=== PATIENT | female | born 1965 | race African-American/Black ===

== ENCOUNTER 2019-06-27 00:48 | Inpatient (IN) | payer OTHER ==
[2019-06-27] MEDS ORDERED: NA CHLORIDE 0.9% 500 ML ONE (01:33)
[2019-06-27 01:52] LABS: Urine Blood 2+ (NEG); Urine Glucose NEGATIVE (NEG); Urine Protein 2+ (NEG); Urine Specific Gravity >1.030 (1.005-1.030)
[2019-06-27 02:06] LABS: Absolute Lymphocytes (CBC) 1.5 K/uL (0.7-4.9); Basophils % 0.7 % (0-1.3); Hematocrit 35.1 % (36.0-45.0); Lymphocytes % 14.4 % (15.3-44.8); RBC Red Blood Cell Count 4.05 M/uL (3.86-4.86)
[2019-06-27] MEDS ORDERED: ASPIRIN 81 MG CHEWABLE TABLET ONE (02:17)
[2019-06-27] MEDS ORDERED: METOPROLOL TAR 50 MG TAB ONE (02:17)
[2019-06-27 02:32] LABS: ALT/SGPT 44 U/L (12-78); AST/SGOT 42 U/L (15-37); Albumin 2.9 g/dL (3.4-5.0); Alkaline Phosphatase 149 U/L (45-117); BUN Blood Urea Nitrogen 12 mg/dL (7-18); Bicarbonate 26 mmol/L (21-32); Bilirubin Direct 0.1 mg/dL (0-0.2); Bilirubin Total 0.3 mg/dL (0.2-1.0); Glucose Level 116 mg/dL (74-106); Magnesium 2.1 mg/dL (1.8-2.4); NT PRO-BNP 7100 pg/mL (<125); Protein, Total 7.1 g/dL (6.4-8.2); Sodium Level 141 mmol/L (136-145); Troponin (Emerg Dept Use Only) 0.07 ng/mL (0.0-0.045)
[2019-06-27 02:33] LABS: Potassium 2.8 mmol/L (3.5-5.1)
[2019-06-27] MEDS ORDERED: NA CHLORIDE 0.9% 250 ML ONE (02:38)
[2019-06-27] MEDS ORDERED: CEFTRIAXONE/SWI 1gm 1 GM/10 ML SYR ONE (02:38)
[2019-06-27] MEDS ORDERED: AZITHROMYCIN 500 MG INJ IVPB ONE (02:38)
[2019-06-27] MEDS ORDERED: POTASSIUM 25 MEQ EFFERV TAB ONE (03:25)
[2019-06-27] MEDS ORDERED: ENOXAPARIN 100 MG/ML SYR SQ ONE (04:00)
[2019-06-27] MEDS ORDERED: FUROSEMIDE 40 MG/4 ML VIAL ONE (04:00)
[2019-06-27] MEDS ORDERED: METHYLPREDNISOLONE 125 MG INJ ONE (04:00)
--- NOTE | 2019-06-27 04:07 | ER ---
Nurse's Notes [facility] Name: Jax Winn Age: 54 yrs Sex: Female : 1965 Arrival Date: 06/27/2019 Time: 00:52 Bed 17 Private MD: Diagnosis: Dyspnea;Cough;Pneumonia, unspecified organism-right multifocal;Pleural effusion in conditions classified elsewhere;Hypokalemia-2.8;Hypoxemia;Tobacco use;Tobacco abuse counseling;Cardiomegaly;Unspecified combined systolic (congestive) and diastolic (congestive) heart failure Presentation: 06/26 01:19 Chief complaint: Patient states: Shortness of breath, productive cough, body aches x 1 lp1 week; no relief with cough suppressants; Beginning to have loss of appetite, x2 episodes of diarrhea; denies any fever. Coronavirus screen: Surgical mask placed on patient. Patient moved to private room, placed in contact and droplet isolation with eye protection until further assessment. Patient reports a cough. Patient reports shortness of breath or difficulty breathing. Patient denies measured and/or subjective temperature greater than 100.4F prior to today's visit. Patient denies travel on a cruise ship or to a country the [facility] currently lists as an affected area. Patient denies contact with known and/or suspected case of COVID-19. Ebola Screen: No symptoms or risks identified at this time. Initial Sepsis Screen: Does the patient meet any 2 criteria? No. Patient's initial sepsis screen is negative. Does the patient have a suspected source of infection? No. Patient's initial sepsis screen is negative. Risk Assessment: Do you want to hurt yourself or someone else? Patient reports no desire to harm self or others. Onset of symptoms was June 27, 2019. 01:19 Method Of Arrival: Ambulatory lp1 01:19 Acuity: ABHINAV 3 lp1 Triage Assessment: 07:22 Respiratory: Onset: The symptoms/episode began/occurred gradually. bb3 07:25 Respiratory: the patient has mild shortness of breath. bb3 Historical: - Allergies: 01:22 No Known Allergies; lp1 - Home Meds: 01:22 None [Active]; lp1 - PMHx: 01:22 Hypertension; lp1 - PSHx: 01:22 ; lp1 - Immunization history:: Adult Immunizations up to date. - Family history:: not pertinent. - Social history:: Smoking status: Patient reports the use of cigarette tobacco products, smokes one-half pack cigarettes per day. Screenin:22 Abuse screen: Denies threats or abuse. Denies injuries from another. Nutritional lp1 screening: No deficits noted. Tuberculosis screening: No symptoms or risk factors identified. Fall Risk None identified. Assessment: 02:02 General: Appears in no apparent distress. comfortable, Behavior is calm, cooperative. mg2 Pain: Complains of pain in whole body. Neuro: Level of Consciousness is awake, alert, obeys commands, Oriented to person, place, time, situation. Cardiovascular: Rhythm is regular. Respiratory: Reports shortness of breath cough that is Airway is patent Respiratory effort is even, unlabored, Respiratory pattern is regular, symmetrical. GI: No signs and/or symptoms were reported involving the gastrointestinal system. : No signs and/or symptoms were reported regarding the genitourinary system. EENT: No signs and/or symptoms were reported regarding the EENT system. Derm: Skin is intact, is healthy with good turgor, Skin is pink, warm \T\ dry. normal. Musculoskeletal: Circulation, motion, and sensation intact. Capillary refill < 3 seconds. 03:00 Reassessment: Patient and/or family updated on plan of care and expected duration. Pain bb3 level reassessed. Patient is alert, oriented x 3, equal unlabored respirations, skin warm/dry/pink. General: Appears distressed, uncomfortable. Respiratory: Reports shortness of breath pain with cough. 04:15 Reassessment: Patient and/or family updated on plan of care and expected duration. Pain bb3 level reassessed. Patient is alert, oriented x 3, equal unlabored respirations, skin warm/dry/pink. General: Appears distressed, uncomfortable, Behavior is calm, cooperative. Respiratory: Reports shortness of breath. 05:30 Reassessment: Patient and/or family updated on plan of care and expected duration. Pain bb3 level reassessed. Patient is alert, oriented x 3, equal unlabored respirations, skin warm/dry/pink. Patient states feeling better. Patient states symptoms have improved. General: Appears in no apparent distress. comfortable, Behavior is calm, cooperative. Respiratory: No deficits noted. 06:45 Reassessment: Patient appears in no apparent distress at this time. Patient and/or bb3 family updated on plan of care and expected duration. Pain level reassessed. Patient is alert, oriented x 3, equal unlabored respirations, skin warm/dry/pink. General: Appears in no apparent distress. comfortable. 07:24 Respiratory: Breath sounds are diminished bilaterally. bb3 Vital Signs: 01:19 BP 166 / 110; Pulse 100; Resp 18; Temp 98.4(O); Pulse Ox 94% on R/A; Weight 90.72 kg; lp1 Height 5 ft. 1 in. (154.94 cm); 02:36 BP 166 / 110; Pulse 112; Resp 22; Pulse Ox 96% ; bb3 03:38 BP 158 / 103; Pulse 111; Resp 20; Pulse Ox 96% ; bb3 03:47 BP 131 / 93; Pulse 97; Resp 22; Pulse Ox 98% ; bb3 04:51 BP 131 / 93; Pulse 93; Resp 22; Pulse Ox 98% ; bb3 04:51 BP 123 / 83; Pulse 93; Resp 17; Pulse Ox 96% ; bb3 05:44 BP 131 / 89; Pulse 86; Resp 22; Pulse Ox 98% ; Pain 2/10; bb3 07:03 BP 136 / 103; Pulse 96; Resp 20; Pulse Ox 100% ; bb3 01:19 Body Mass Index 37.79 (90.72 kg, 154.94 cm) lp1 ED Course: 00:52 Patient arrived in ED. fj1 00:59 Britton Knox MD is Attending Physician. melony 01:21 Triage completed. lp1 01:21 Arm band placed on. lp1 01:22 Patient has correct armband on for positive identification. Placed in gown. Bed in low lp1 position. Call light in reach. Droplet isolation initiated. 01:33 Chest Pa And Lat (2 Views) XRAY In Process Unspecified. EDMS 01:50 Inserted saline lock: 20 gauge in right antecubital area, using aseptic technique. mg2 Blood collected. 02:01 No provider procedures requiring assistance completed. mg2 03:25 CT Chest For PE Angio In Process Unspecified. EDMS 04:03 Rha Franks is Hospitalizing Provider. melony 07:16 Patient admitted, IV remains in place. intact. bb3 Administered Medications: 02:00 Drug: NS 0.9% 500 ml Route: IV; Rate: bolus; Site: right antecubital; mg2 02:46 Drug: Rocephin 1 grams Route: IV; Rate: per protocol; Site: right antecubital; bb3 02:50 Drug: Aspirin 162 mg Route: PO; bb3 03:49 Follow up: Response: No adverse reaction bb3 02:50 Drug: Lopressor (metoprolol TARTRATE) 50 mg Route: PO; bb3 03:47 Follow up: BP 131 / 93; Pulse 97 bpm; Resp 22 bpm; Pulse Ox 98% bb3 03:48 Follow up: Response: No adverse reaction; Blood pressure is lowered bb3 03:30 Drug: Zithromax 500 mg Route: IVPB; Infused Over: 1 hrs; Site: right antecubital; bb3 03:40 Drug: Potassium Effervescent Tablet 50 mEq Route: PO; bb3 07:12 Follow up: Response: No adverse reaction bb3 07:13 Follow up: Response: No adverse reaction bb3 03:52 CANCELLED (Other Intervention Used): Xopenex 2.5 mg Inhalation once lp1 03:52 CANCELLED (Other Intervention Used): AtroVENT Aerosol 0.5 mg Inhalation once lp1 04:05 Drug: Lasix 40 mg Route: IVP; Site: right antecubital; bb3 05:45 Follow up: Response: No adverse reaction bb3 04:07 Drug: SOLU-Medrol 125 mg Route: IVP; Site: right antecubital; bb3 07:12 Follow up: Response: No adverse reaction bb3 04:10 Drug: Lovenox 90 mg Route: Sub-Q; Site: right lower abdomen; bb3 05:44 Follow up: Response: Adverse reaction, Physician notified bb3 07:02 Follow up: Response: No adverse reaction bb3 04:30 Drug: Potassium Chloride 20 mEq Route: IV; Rate: per protocol; Site: right antecubital; bb3 07:14 Follow up: IV Status: Completed infusion bb3 05:00 Drug: morphine 2 mg Route: IVP; Site: right antecubital; bb3 05:44 Follow up: BP 131 / 89; Pulse 86 bpm; Resp 22 bpm; Pulse Ox 98% ; Pain 2/10 Adult; bb3 Response: No adverse reaction; Pain is decreased; Blood pressure is lowered 07:01 Follow up: Response: No adverse reaction; Pain is decreased; RASS: Alert and Calm (0) bb3 05:00 Drug: Zofran (Ondansetron) 4 mg Route: IVP; Site: right antecubital; bb3 05:43 Follow up: Response: No adverse reaction; Nausea is decreased bb3 07:00 Follow up: Response: No adverse reaction; Nausea is decreased bb3 07:03 Not Given (unavailable): Albuterol HFA Inhaler 2 puffs Inhalation once bb3 Outcome: 04:06 Decision to Hospitalize by Provider. melony 07:16 Admitted to ICU bb3 07:16 Admitted to ICU accompanied by nurse, via stretcher, with chart, Report called to ELKE Conroy 07:16 Condition: improved 07:16 Discharge instructions given to Instructed on the need for transfer, Demonstrated understanding of 07:26 Patient left the ED. bb3 Signatures: Dispatcher [employer] EDMS Britton Knox MD MD cha Pena, Laura, RN RN lp1 Neil Stein RN RN Temi Ellis bb3 Carlos Thurman fj1
--- NOTE | 2019-06-27 04:07 | EDPHYS ---
Physician Documentation [facility] Name: Jax Winn Age: 54 yrs Sex: Female : 1965 Arrival Date: 06/27/2019 Time: 00:52 Bed 17 Private MD: ED Physician Britton Knox HPI: 06/26 01:10 This 54 yrs old Black Female presents to ER via Unassigned with complaints of Shortness melony Of Breath, Cough, Pain All Over. 01:10 The patient has shortness of breath at rest. Onset: The symptoms/episode began/occurred melony 7 day(s) ago. Duration: The symptoms are continuous, and are unchanged since they started. The patient's shortness of breath has no apparent modifying factors, is aggravated by nothing, is alleviated by nothing. Associated signs and symptoms: Pertinent positives: chest pain, non-productive cough. Severity of symptoms: At their worst the symptoms were mild in the emergency department the symptoms are unchanged. The patient has experienced similar episodes in the past, a few times. Historical: - Allergies: :22 No Known Allergies; lp1 - Home Meds: :22 None [Active]; lp1 - PMHx: 01:22 Hypertension; lp1 - PSHx: 01:22 ; lp1 - Immunization history:: Adult Immunizations up to date. - Family history:: not pertinent. - Social history:: Smoking status: Patient reports the use of cigarette tobacco products, smokes one-half pack cigarettes per day. ROS: 01:11 Constitutional: Negative for fever, chills, and weight loss, Eyes: Negative for injury, melony pain, redness, and discharge, ENT: Negative for injury, pain, and discharge, Neck: Negative for injury, pain, and swelling, Abdomen/GI: Negative for abdominal pain, nausea, vomiting, diarrhea, and constipation, Back: Negative for injury and pain, : Negative for injury, bleeding, discharge, and swelling, MS/Extremity: Negative for injury and deformity, Skin: Negative for injury, rash, and discoloration, Neuro: Negative for headache, weakness, numbness, tingling, and seizure, Psych: Negative for depression, anxiety, suicide ideation, homicidal ideation, and hallucinations, Allergy/Immunology: Negative for hives, rash, and allergies, Endocrine: Negative for neck swelling, polydipsia, polyuria, polyphagia, and marked weight changes, Hematologic/Lymphatic: Negative for swollen nodes, abnormal bleeding, and unusual bruising. :11 Cardiovascular: Positive for chest pain. :11 Respiratory: Positive for cough, shortness of breath, at rest. :11 MS/extremity: Negative for acute changes. Exam: :11 Constitutional: This is a well developed, well nourished patient who is awake, alert, melony and in no acute distress. Head/Face: Normocephalic, atraumatic. Eyes: Pupils equal round and reactive to light, extra-ocular motions intact. Lids and lashes normal. Conjunctiva and sclera are non-icteric and not injected. Cornea within normal limits. Periorbital areas with no swelling, redness, or edema. ENT: Nares patent. No nasal discharge, no septal abnormalities noted. Tympanic membranes are normal and external auditory canals are clear. Oropharynx with no redness, swelling, or masses, exudates, or evidence of obstruction, uvula midline. Mucous membranes moist. Neck: Trachea midline, no thyromegaly or masses palpated, and no cervical lymphadenopathy. Supple, full range of motion without nuchal rigidity, or vertebral point tenderness. No Meningismus. Chest/axilla: Normal chest wall appearance and motion. Nontender with no deformity. No lesions are appreciated. Cardiovascular: Regular rate and rhythm with a normal S1 and S2. No gallops, murmurs, or rubs. Normal PMI, no JVD. No pulse deficits. Respiratory: Lungs have equal breath sounds bilaterally, clear to auscultation and percussion. No rales, rhonchi or wheezes noted. No increased work of breathing, no retractions or nasal flaring. Abdomen/GI: Soft, non-tender, with normal bowel sounds. No distension or tympany. No guarding or rebound. No evidence of tenderness throughout. Back: No spinal tenderness. No costovertebral tenderness. Full range of motion. Skin: Warm, dry with normal turgor. Normal color with no rashes, no lesions, and no evidence of cellulitis. MS/ Extremity: Pulses equal, no cyanosis. Neurovascular intact. Full, normal range of motion. Neuro: Awake and alert, GCS 15, oriented to person, place, time, and situation. Cranial nerves II-XII grossly intact. Motor strength 5/5 in all extremities. Sensory grossly intact. Cerebellar exam normal. Normal gait. Psych: Awake, alert, with orientation to person, place and time. Behavior, mood, and affect are within normal limits. 01:11 Musculoskeletal/extremity: DVT Exam: No signs of deep vein thrombosis. no pain, no swelling, no tenderness, negative Homans' sign noted on exam, no appreciated bluish discoloration, no erythema, no increased warmth. 02:01 ECG was reviewed by the Attending Physician. [facility] Vital Signs: 01:19 BP 166 / 110; Pulse 100; Resp 18; Temp 98.4(O); Pulse Ox 94% on R/A; Weight 90.72 kg; lp1 Height 5 ft. 1 in. (154.94 cm); 02:36 BP 166 / 110; Pulse 112; Resp 22; Pulse Ox 96% ; bb3 03:38 BP 158 / 103; Pulse 111; Resp 20; Pulse Ox 96% ; bb3 03:47 BP 131 / 93; Pulse 97; Resp 22; Pulse Ox 98% ; bb3 04:51 BP 131 / 93; Pulse 93; Resp 22; Pulse Ox 98% ; bb3 04:51 BP 123 / 83; Pulse 93; Resp 17; Pulse Ox 96% ; bb3 05:44 BP 131 / 89; Pulse 86; Resp 22; Pulse Ox 98% ; Pain 2/10; bb3 07:03 BP 136 / 103; Pulse 96; Resp 20; Pulse Ox 100% ; bb3 01:19 Body Mass Index 37.79 (90.72 kg, 154.94 cm) lp1 MDM: 00:59 Patient medically screened. [facility] 01:14 Differential diagnosis: Bronchitis CHF exacerbation, Chronic Obstructive Pulmonary melony Disease pneumonia, Pneumothorax pulmonary edema, Pulmonary Embolism reactive airway disease. Antibiotic administration: Not indicated. The patient's Wells Deep Vein Thrombosis Score was calculated as follows: Total Score: 0-2 Pts- Low Risk. The patient's pulmonary embolism risk score was calculated as follows: Total Score: 0-2 points. This patient was found to be at low risk for a pulmonary embolism by using the Well's assessment criteria. Data reviewed: vital signs, nurses notes, lab test result(s), EKG, radiologic studies, plain films. Data interpreted: vehicle monitor technician: rate is 80 beats/min, rhythm is normal sinus rhythm, Pulse oximetry: on room air is 96 %. Test interpretation: by ED physician or midlevel provider: ECG, plain radiologic studies. 04:06 Immunization status: Influenza vaccine: within last 5 years. Counseling: I had a [facility] detailed discussion with the patient and/or guardian regarding: the historical points, exam findings, and any diagnostic results supporting the discharge/admit diagnosis, the presence of at least one elevated blood pressure reading (>120/80) during this emergency department visit, lab results, radiology results, the need for further work-up and treatment in the hospital. ED course: cp, sob, cough, works in [place], sob , subjective fevers, x 1 week worse, suspicious for multifocal pna, covid 19, and or atypical pna. 04:13 ED course: dr franks aware of the case, no further orders, to icu. [facility] 06/26 01:10 Order name: Basic Metabolic Panel; Complete Time: 03:37 [facility] 06/26 01:10 Order name: CBC with Diff; Complete Time: 02:23 [facility] 06/26 01:10 Order name: LFT's; Complete Time: 03:37 [facility] 06/26 01:10 Order name: Magnesium; Complete Time: 03:37 [facility] 06/26 01:10 Order name: NT PRO-BNP; Complete Time: 03:37 [facility] 06/26 01:10 Order name: Troponin (emerg Dept Use Only); Complete Time: 03:37 [facility] 06/26 01:10 Order name: Blood Culture Adult (2) [facility] 06/26 01:10 Order name: Procalcitonin; Complete Time: 03:37 [facility] 06/26 01:10 Order name: COVID-19 [facility] 06/26 01:10 Order name: Flu; Complete Time: 03:37 [facility] 06/26 01:10 Order name: Strep; Complete Time: 03:37 [facility] 06/26 01:13 Order name: D-Dimer: sob.cp; Complete Time: 02:23 [facility] 06/26 01:43 Order name: Urine Dipstick--Ancillary (enter results); Complete Time: 02:00 [facility] 06/26 02:32 Order name: Throat Culture [facility] 06/26 01:10 Order name: Chest Pa And Lat (2 Views) XRAY [facility] 06/26 02:24 Order name: CT Chest For PE Angio [facility] 06/26 01:10 Order name: EKG; Complete Time: 01:11 [facility] 06/26 01:10 Order name: Cardiac monitoring; Complete Time: 02:01 [facility] 06/26 01:10 Order name: EKG - Nurse/Tech; Complete Time: 02:01 [facility] 06/26 01:10 Order name: IV Saline Lock; Complete Time: 02:01 [facility] 06/26 01:10 Order name: Labs collected and sent; Complete Time: 02:01 [facility] 06/26 01:10 Order name: O2 Per Protocol; Complete Time: 01:33 [facility] 06/26 01:10 Order name: O2 Sat Monitoring; Complete Time: 01:33 [facility] 06/26 01:14 Order name: Urine Dipstick-Ancillary (obtain specimen); Complete Time: :43 [facility] 06/26 04:12 Order name: Oxygen; Complete Time: 05:30 [facility] EC:01 Rate is 107 beats/min. Rhythm is regular. QRS Beebe is Normal. NV interval is normal. [facility] QRS interval is normal. QT interval is normal. No Q waves. T waves are Normal. Clinical impression: NSR w/ Non-specific ST/T Changes. Interpreted by me. Reviewed by me. Administered Medications: 02:00 Drug: NS 0.9% 500 ml Route: IV; Rate: bolus; Site: right antecubital; mg2 02:46 Drug: Rocephin 1 grams Route: IV; Rate: per protocol; Site: right antecubital; bb3 02:50 Drug: Aspirin 162 mg Route: PO; bb3 03:49 Follow up: Response: No adverse reaction bb3 02:50 Drug: Lopressor (metoprolol TARTRATE) 50 mg Route: PO; bb3 03:47 Follow up: BP 131 / 93; Pulse 97 bpm; Resp 22 bpm; Pulse Ox 98% bb3 03:48 Follow up: Response: No adverse reaction; Blood pressure is lowered bb3 03:30 Drug: Zithromax 500 mg Route: IVPB; Infused Over: 1 hrs; Site: right antecubital; bb3 03:40 Drug: Potassium Effervescent Tablet 50 mEq Route: PO; bb3 07:12 Follow up: Response: No adverse reaction bb3 07:13 Follow up: Response: No adverse reaction bb3 03:52 CANCELLED (Other Intervention Used): Xopenex 2.5 mg Inhalation once lp1 03:52 CANCELLED (Other Intervention Used): AtroVENT Aerosol 0.5 mg Inhalation once lp1 04:05 Drug: Lasix 40 mg Route: IVP; Site: right antecubital; bb3 05:45 Follow up: Response: No adverse reaction bb3 04:07 Drug: SOLU-Medrol 125 mg Route: IVP; Site: right antecubital; bb3 07:12 Follow up: Response: No adverse reaction bb3 04:10 Drug: Lovenox 90 mg Route: Sub-Q; Site: right lower abdomen; bb3 05:44 Follow up: Response: Adverse reaction, Physician notified bb3 07:02 Follow up: Response: No adverse reaction bb3 04:30 Drug: Potassium Chloride 20 mEq Route: IV; Rate: per protocol; Site: right antecubital; bb3 07:14 Follow up: IV Status: Completed infusion bb3 05:00 Drug: morphine 2 mg Route: IVP; Site: right antecubital; bb3 05:44 Follow up: BP 131 / 89; Pulse 86 bpm; Resp 22 bpm; Pulse Ox 98% ; Pain 2/10 Adult; bb3 Response: No adverse reaction; Pain is decreased; Blood pressure is lowered 07:01 Follow up: Response: No adverse reaction; Pain is decreased; RASS: Alert and Calm (0) bb3 05:00 Drug: Zofran (Ondansetron) 4 mg Route: IVP; Site: right antecubital; bb3 05:43 Follow up: Response: No adverse reaction; Nausea is decreased bb3 07:00 Follow up: Response: No adverse reaction; Nausea is decreased bb3 07:03 Not Given (unavailable): Albuterol HFA Inhaler 2 puffs Inhalation once bb3 Disposition: 04:08 Critical Care:. melony Disposition: 06/27/19 04:06 Hospitalization ordered by Rah Franks for Inpatient Admission. Preliminary diagnosis are Dyspnea, Cough, Pneumonia, unspecified organism - right multifocal, Pleural effusion in conditions classified elsewhere, Hypokalemia - 2.8, Hypoxemia, Tobacco use, Tobacco abuse counseling, Cardiomegaly, Unspecified combined systolic (congestive) and diastolic (congestive) heart failure. - Bed requested for Intensive Care Unit. - Status is Inpatient Admission. bb3 - Condition is Fair. - Problem is new. - Symptoms have improved. Critical care time excluding procedures: 04:08 Critical care time: Bedside Care: 30 minutes, Consultation: 10 minutes. Total time: 40 melony minutes Signatures: Dispatcher [employer] EDBritton Plunkett MD MD cha Pena, Laura, RN RN lp1 Olimpia Rayn RN RN Neil Stein RN RN [facility] Temi Cooper bb3 Corrections: (The following items were deleted from the chart) 03:52 03:39 Xopenex 2.5 mg Inhalation once ordered. [facility] lp1 03:52 03:39 AtroVENT Aerosol 0.5 mg Inhalation once ordered. [facility] 05:59 04:06 Hospitalization Ordered by Rah Franks for Inpatient Admission. Preliminary diagnosis is Dyspnea; Cough; Pneumonia, unspecified organism - right multifocal; Pleural effusion in conditions classified elsewhere; Hypokalemia - 2.8; Hypoxemia; Tobacco use; Tobacco abuse counseling; Cardiomegaly; Unspecified combined systolic (congestive) and diastolic (congestive) heart failure. Bed requested for Intensive Care Unit. Status is Inpatient Admission. Condition is Fair. Problem is new. Symptoms have improved. [facility] 07:26 05:59 06/27/2019 04:06 Hospitalization Ordered by Rah Franks for Inpatient bb3 Admission. Preliminary diagnosis is Dyspnea; Cough; Pneumonia, unspecified organism - right multifocal; Pleural effusion in conditions classified elsewhere; Hypokalemia - 2.8; Hypoxemia; Tobacco use; Tobacco abuse counseling; Cardiomegaly; Unspecified combined systolic (congestive) and diastolic (congestive) heart failure. Bed requested for Intensive Care Unit. Status is Inpatient Admission. Condition is Fair. Problem is new. Symptoms have improved. cg
[2019-06-27] MEDS ORDERED: KCL 20 MEQ/100 mL IVPB 20 MEQ/100 ML BAG IV ONE (04:41)
[2019-06-27] MEDS ORDERED: MORPHINE 2 MG/ML SYR ONE (04:41)
[2019-06-27] MEDS ORDERED: ONDANSETRON 4 MG/2 ML VIAL ONE (04:42)
--- NOTE | 2019-06-27 05:42 | P.HP ---
Certification for Inpatient Patient admitted to: Inpatient With expected LOS: >2 Midnights Practitioner: I am a practitioner with admitting privileges, knowledge of patient current condition, hospital course, and medical plan of care. Services: Services provided to patient in accordance with Admission requirements found in Title 42 Section 412.3 of the Code of Federal Regulations Patient History Date of Service: 06/27/19 Reason for admission: Shortness of breath and cough History of Present Illness: 54-year-old woman with a history of hypertension presented emergency department with a history of progressive shortness of breath and cough. Patient reports cough productive of greenish sputum. She denied fever or chest pain. She endorsed orthopnea. Her D-dimer was elevated in the ED. CTA thorax was done in the ED with reported multifocal infiltrates. Her initial troponin is mildly elevated, BNP is significantly elevated suggesting congestive heart failure. 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 She was requiring oxygen by nasal cannula to maintain her oxygen saturation Patient is hospitalized for further management. Allergies No Known Allergies Allergy (Unverified 06/27/19 06:08) - Past Medical/Surgical History -: Hypertension - Family History Father -: Heart disease - Social History Smoking Status: Current every day smoker Alcohol use: No CD- Drugs: No Place of Residence: Home Review of Systems Other: Except as documented, all other systems reviewed and negative. Physical Examination - Physical Exam General: Alert, In no apparent distress, Oriented x3 HEENT: Atraumatic, PERRLA, Mucous membr. moist/pink, Sclerae nonicteric Neck: Supple, JVD not distended Respiratory: Clear to auscultation bilaterally, Normal air movement Cardiovascular: No edema, Regular rate/rhythm, Normal S1 S2, No murmurs Gastrointestinal: Normal bowel sounds, Soft and benign, Non-distended, No tenderness Musculoskeletal: No swelling, No erythema Integumentary: No rashes Neurological: Normal speech, Normal strength at 5/5 x4 extr, Cranial nerves 3-12 intact - Studies Laboratory Data (last 24 hrs) 06/27/19 01:50: WBC 10.3, Hgb 11.6 L, Hct 35.1 L, Plt Count 435 H 06/27/19 01:50: Sodium 141, Potassium 2.8 L*, BUN 12, Creatinine 0.52 L, Glucose 116 H, Magnesium 2.1, Total Bilirubin 0.3, AST 42 H, ALT 44, Alkaline Phosphatase 149 H Microbiology Data (last 24 hrs): 06/27/19 01:50 Nasopharnyx Influenza Type A Antigen Screen - Final 06/27/19 01:50 Nasopharnyx Influenza Type B Antigen Screen - Final 06/27/19 01:50 Throat Group A Streptococcus Rapid Screen - Final Assessment and Plan - Problems (Diagnosis) (1) Acute respiratory failure with hypoxia Current Visit: Yes Status: Acute (2) Pneumonia Current Visit: Yes Status: Acute (3) Congestive heart failure Current Visit: Yes Status: Acute (4) Hypertension Current Visit: Yes Status: Acute - Plan Admit to the medical floor. Supplemental oxygen. IV lasix Trend troponin Obtain echocardiogram to assess EF and cardiac chambers IV antibiotic Tests for Covid 19 obtained in the ED. Bronchodilators p.r.n. - Advance Directives Does patient have a Living Will: No Does patient have a Durable POA for Healthcare: No
[2019-06-27] MEDS: METOPROLOL TAR 25 MG TAB PO SCH ×2 (07:07→17:54)
[2019-06-27] MEDS ORDERED: ONDANSETRON 4 MG/2 ML VIAL IV PRN (07:07)
[2019-06-27] MEDS: ASPIRIN EC 81 MG TAB PO SCH (07:23)
[2019-06-27 08:00] VITALS: BMI 41.3
[2019-06-27] MEDS ORDERED: IPRATROPIUM BROM 0.5MG/2.5ML NEB SCH (08:00)
[2019-06-27] MEDS: DULERA 200/5 (MOMETASONE/FORMOTEROL) INHALER IH SCH ×2 (08:53→21:00)
[2019-06-27] MEDS ORDERED: FUROSEMIDE 40 MG/4 ML VIAL IV SCH ×2 (09:00→17:00)
[2019-06-27] MEDS ORDERED: CEFTRIAXONE 1 GM/NS 50 ML 1 GM/50 ML BAG IV SCH (09:00)
[2019-06-27] MEDS ORDERED: AZITHROMYCIN IV 500 MG in NA CHLORIDE 0.9% 250 ML IVPB SCH (09:00)
[2019-06-27] MEDS ORDERED: CEFTRIAXONE/SWI 1gm 1 GM/10 ML SYR IVP SCH (09:00)
[2019-06-27] MEDS ORDERED: ENOXAPARIN 40 MG/0.4 ML SQ SCH (09:00)
[2019-06-27 09:53] LABS: Arterial Blood Carboxyhemoglob 1.7 % (0-1.5); Blood Gas Oxyhemoglobin 87.4 % (94-97); Blood O2 Saturation 89.6 % (92-98.5)
--- NOTE | 2019-06-27 11:55 | RAD REPORT ---
EXAM DESCRIPTION: RAD - Chest Pa And Lat (2 Views) - 06/27/2019 1:33 am CLINICAL HISTORY: COUGH Chest pain. COMPARISON: No comparisons FINDINGS: Moderate right lower lobe posterior lung consolidation is present, compatible with pneumon ia. The heart is mildly prominent size. No displaced fractures. IMPRESSION: Moderate posterior right lower lobe pneumonia.
[2019-06-27] MEDS ORDERED: IBUPROFEN 400 MG TAB PO PRN (12:45)
--- NOTE | 2019-06-27 13:07 | RAD REPORT ---
EXAM DESCRIPTION: CT chest angiography with intravenous contrast CLINICAL HISTORY: 54-year-old female with chest pain, cough and dyspnea. TECHNIQUE: Following the administration of intravenous contrast, multiple high-resolution axial imag es of the chest were performed followed by coronal oblique and coronal reconstructed images. Axial an d coronal MIP images were reconstructed. The CT study is performed according to ALARA (as low as reas onably achievable) or ALARA/IMAGE GENTLY, with automatic adjustment of mA and/or kV according to minna ent size. Performed on: 06/27/2019 at 2:53 AM COMPARISON: None FINDINGS: There is satisfactory visualization and contrast opacification of pulmonary arteries. No definite intra-arterial filling defects are identified to suggest acute or chronic pulmonary embolis m. The thoracic aorta is normal in caliber and contour without evidence of aneurysm or dissection. The lungs are well expanded. There is patchy airspace consolidation in the right lower lobe and porti ons of the right middle lobe consistent with a pneumonic process. There is minimal lingular atelectas is. There is a trace right pleural effusion. There is no pneumothorax. The heart is enlarged. There is no pericardial effusion. There is no significant reflux of contrast i nto the hepatic veins. The RV/LV ratio is within normal limits. There is no evidence of hilar, mediastinal or axillary lymphadenopathy. No acute osseous abnormality is identified. The visualized upper abdominal structures suggest cholelithiasis. IMPRESSION: 1. No CT evidence to suggest acute or chronic pulmonary embolism, aortic aneurysm or aor tic dissection. 2. Patchy airspace consolidation in the right lower lobe and portions of the right middle lobe most c onsistent with multifocal pneumonia. Imaging features are atypical or uncommonly reported for COVID 1 9 or viral pneumonia. Alternative diagnoses should be considered. 3. Trace right pleural effusion. 4. Cardiomegaly. 5. Suspect cholelithiasis. Electronically signed by: Marisabel Vela DO 06/27/2019 3:37 AM CDT Due to temporary technical issues with the PACS/Fluency reporting system, reports are being signed by the in house radiologist as a courtesy to ensure prompt reporting. The interpreting radiologist is f ully responsible for the content of the report.
[2019-06-27] MEDS: HYDROCODONE/APAP 5/325 MG TAB PO PRN (17:54)
[2019-06-27] MEDS ORDERED: POTASSIUM CL SA 10 MEQ TAB PO ONE (19:00)
[2019-06-27] MEDS ORDERED: IBUPROFEN 400 MG TAB PO SCH (21:00)
[2019-06-28] MEDS: HYDROCODONE/APAP 5/325 MG TAB PO PRN (04:04)
[2019-06-28 04:13] LABS: Absolute Lymphocytes (CBC) 4.3 K/uL (0.7-4.9); Basophils % 0.9 % (0-1.3); Hematocrit 32.2 % (36.0-45.0); Lymphocytes % 27.7 % (15.3-44.8); MPV 8.4 fL (7.6-11.3); RBC Red Blood Cell Count 3.71 M/uL (3.86-4.86)
[2019-06-28 04:27] LABS: BUN Blood Urea Nitrogen 24 mg/dL (7-18); Bicarbonate 29 mmol/L (21-32); Glucose Level 99 mg/dL (74-106); HDL Cholesterol 26 mg/dL (40-60); LDL Cholesterol, Calculated 103 (<130); Phosphorus 3.8 mg/dL (2.5-4.9); Potassium 3.1 mmol/L (3.5-5.1); Sodium Level 143 mmol/L (136-145)
[2019-06-28] MEDS: ALBUTEROL 2.5 MG/3 ML NEB SOL NEB PRN ×2 (04:30→08:04)
[2019-06-28 04:49] LABS: Protime INR 1.06
[2019-06-28] MEDS ORDERED: POTASSIUM CL SA 10 MEQ TAB PO ONE (05:01)
[2019-06-28] MEDS: METOPROLOL TAR 25 MG TAB PO SCH (05:52)
--- NOTE | 2019-06-28 07:19 | P.DS ---
Admission Date: 06/27/19 (Hospitalist) Discharge Date: 06/28/19 Discharge Condition: GOOD Reason for Admission: Pneumonia Brief History of Present Illness: Shortness of breath Hospital Course: Patient is 54 years of age admitted with right lower lobe pneumonia she was initially admitted to the ICU for a woodall virus negative history of active smoking at the time of discharge alert oriented responsive cooperative vital signs all stable patient has been instructed not to smoke she will have she will need outpatient pulmonary function testing has some right-sided chest discomfort describing is pleuritic chest pain is probably from the pneumonia blood cultures negative Vital Signs/Physical Exam: Temp Pulse Resp BP Pulse Ox 98.3 F 97 H 18 141/90 H 96 06/28/19 04:00 06/28/19 05:52 06/28/19 05:04 06/28/19 05:52 06/28/19 05:04 General: Alert Neck: Supple Respiratory: Crackles/rales (Crackles on the right lower low) Cardiovascular: No edema, Regular rate/rhythm Laboratory Data at Discharge: WBC Cancelled 06/28/19 Unknown Hgb Cancelled 06/28/19 Unknown Hct Cancelled 06/28/19 Unknown Plt Count Cancelled 06/28/19 Unknown PT 12.5 SECONDS (9.5-12.5) 06/28/19 03:50 INR 1.06 06/28/19 03:50 Sodium Cancelled 06/28/19 Unknown Potassium Cancelled 06/28/19 Unknown BUN Cancelled 06/28/19 Unknown Creatinine Cancelled 06/28/19 Unknown Glucose Cancelled 06/28/19 Unknown Phosphorus 3.8 mg/dL (2.5-4.9) 06/28/19 03:50 Magnesium 2.0 mg/dL (1.8-2.4) 06/28/19 03:50 Total Bilirubin 0.3 mg/dL (0.2-1.0) 06/27/19 01:50 AST 42 U/L (15-37) H 06/27/19 01:50 ALT 44 U/L (12-78) 06/27/19 01:50 Alkaline Phosphatase 149 U/L (45-117) H 06/27/19 01:50 Troponin I 0.04 ng/mL (0.0-0.045) 06/27/19 12:42 Triglycerides 146 mg/dL (<150) 06/28/19 03:50 Cholesterol 158 mg/dL (<200) 06/28/19 03:50 HDL Cholesterol 26 mg/dL (40-60) L 06/28/19 03:50 Cholesterol/HDL Ratio 6.08 06/28/19 03:50 Home Medications: Levofloxacin [Levaquin] 500 mg PO DAILY #7 tablet 06/27/19 Losartan Potassium [Cozaar*] 50 mg PO DAILY 30 Days #30 tablet 06/27/19 New Medications: Losartan Potassium [Cozaar*] 50 mg PO DAILY 30 Days #30 tablet Levofloxacin [Levaquin] 500 mg PO DAILY #7 tablet Patient Discharge Instructions: Please give patient the Dulera inhaler Diet: Regular Activity: Ad calvin Followup: Theo Arcos MD [ACTIVE - CAN ADMIT] -
[2019-06-28] MEDS: DULERA 200/5 (MOMETASONE/FORMOTEROL) INHALER IH SCH (07:52)
[2019-06-28] MEDS: ASPIRIN EC 81 MG TAB PO SCH (07:53)
--- NOTE | 2019-06-28 08:29 | RAD REPORT ---
EXAM DESCRIPTION: Cayetano Shelby And Lat (2 Views)06/28/2019 5:37 am CLINICAL HISTORY: Cough COMPARISON: June 26 FINDINGS: No change in a moderate right basilar opacity likely pneumonia Left lung appears clear The heart is moderately to markedly enlarged
[2019-06-28 08:33] VITALS: O2SAT 97
[2019-06-28] MEDS ORDERED: AZITHROMYCIN IV 500 MG in NA CHLORIDE 0.9% 250 ML IVPB SCH (09:00)
[2019-06-28] MEDS ORDERED: ENOXAPARIN 40 MG/0.4 ML SQ SCH (09:00)
[2019-06-28] MEDS ORDERED: CEFTRIAXONE/SWI 1gm 1 GM/10 ML SYR IVP SCH (09:00)
[2019-06-28 09:41] VITALS: BP 133/93; TEMP 97.1
--- NOTE | 2019-06-28 10:53 | EKG ---
Test Date: 2019-06-27 Test Time: 01:43:21 Control Systems Technician: MEASUREMENT RESULTS: Intervals: Rate: 107 MA: 132 QRSD: 86 QT: 352 QTc: 469 Secretary: P: 55 MA: 132 QRS: 65 T: -78 INTERPRETIVE STATEMENTS: Sinus tachycardia Biatrial enlargement ST & T wave abnormality, consider inferolateral ischemia Abnormal ECG No previous ECG available for comparison Electronically Signed On 06-28-19 10:49:21 CDT by Josse Pedro
== END 2019-06-28 08:56 | disposition home or self-care (01) | DRG 193 ==
LOC: ER 00:48 → ERHOLD 06:33 → 3RD-ICU 07:23 → 2ND 11:10
PROVIDERS: ADMIT Internal Medicine; ATTEND Internal Medicine Sleep Medicine
DX: J18.9 Pneumonia, unspecified organism (principal); J96.01 Acute respiratory failure with hypoxia; I11.0 Hypertensive heart disease with heart failure; I50.9 Heart failure, unspecified; F17.210 Nicotine dependence, cigarettes, uncomplicated; Z79.899 Other long term (current) drug therapy; Z20.828 Contact with and (suspected) exposure to other viral communicable diseases
CPT/HCPCS: 36415; 71046; 71275; 80048; 80061; 80076; 81003; 82805; 83735; 83880; 84100; 84132; 84145; 84484; 85025; 85379; 85610; 87040; 87070; 87081; 87804; 93005; 94640; 94760; 96365; 96366; 96372; 96375; 99285; J0456; J0696; J1650; J1940; J2270; J2405; J2930; J7030; J7040; J7606; Q9967; U0002